=== PATIENT | female | born 1980 | race African-American/Black ===

== ENCOUNTER 2024-06-13 04:43 | Day surgery (SDC) | payer OTHER ==
[2024-06-11 11:46] VITALS: BMI 48.7
[2024-06-13 10:10] VITALS: TEMP 98.2
[2024-06-13 13:13] VITALS: BP 131/72; PULSE 63; RESP 18
== END 2024-06-13 13:20 | disposition home or self-care (01) ==
LOC: JASU-ENDO 04:43
PROVIDERS: ATTEND Student in an Organized Health Care Education/Training Program
PROC: 0DB78ZX Excision of Stomach, Pylorus, Via Natural or Artificial Opening Endoscopic, Diagnostic (ICD-10-PCS; 2024-06-13)
PROC: 0DB68ZX Excision of Stomach, Via Natural or Artificial Opening Endoscopic, Diagnostic (ICD-10-PCS; 2024-06-13)
PROC: 0DB98ZX Excision of Duodenum, Via Natural or Artificial Opening Endoscopic, Diagnostic (ICD-10-PCS; principal; 2024-06-13 10:30)
DX: K29.50 Unspecified chronic gastritis without bleeding (principal); Z01.818 Encounter for other preprocedural examination
CPT/HCPCS: 81025